=== PATIENT | female | born 1985 | race Hispanic/Latino ===

== ENCOUNTER 2019-08-29 11:36 | Outpatient (CLI) | payer OTHER, SELFPAY ==
[2019-08-29 13:04] LABS: APPEARANCE, URINE HAZY (CLEAR); BACTERIA, URINE AUTO NEGATIVE (NEGATIVE); BILIRUBIN, URINE AUTO NEGATIVE (NEGATIVE); BLOOD, URINE BLOOD NEGATIVE (NEGATIVE); COLOR, URINE YELLOW (YELLOW); GLUCOSE, URINE (UA) AUTO NEGATIVE (NEGATIVE); KETONE, URINE AUTO 1+ mg/dL (NEGATIVE); LEUKOCYTE ESTERASE, URINE AUTO 3+ (NEGATIVE); MUCUS, URINE SMALL (NEGATIVE); NITRITE, URINE AUTO NEGATIVE (NEGATIVE); PROTEIN, URINE AUTO NEGATIVE (NEGATIVE); RBC, URINE AUTO 2 /HPF (0-3); SQUAMOUS EPITHELIAL CELL UR AU 8 /HPF (0-6); UROBILINOGEN, URINE AUTO 0.2 mg/dL (0.0-2.0); WBC, URINE AUTO 19 /HPF (0-3)
[2019-08-29] MEDS ORDERED: ACETAMINOPHEN 500 MG TAB PO PRN (13:45)
[2019-08-29] MEDS ORDERED: AMOX500C PO (13:50)
[2019-08-29] MEDS ORDERED: PHEN-593 PO (13:51)
[2019-08-29] MEDS ORDERED: AMOXICILLIN 500 MG CAP PO SCH (14:00)
[2019-08-29] MEDS ORDERED: PHENAZOPYRIDINE 100 MG TAB PO SCH (14:00)
[2019-08-29 14:34] LABS: CHLAMYDIA DNA AMPLIFICATION NEGATIVE (NEGATIVE); GC DNA AMPLIFICATION NEGATIVE (NEGATIVE)
--- NOTE | 2019-08-29 14:54 | IPNPDOC ---
Text Note Date of Service The patient was seen on 08/29/19. NOTE Outpatient 34yo REID 11/25/2019. Visiting from [place], no records available. Reports lower abdominal pain umbilicus down to pubic bone. FH cat I, reassuring for gestation No UC on monitor Abdomen soft, tender over bladder. SVE parous, LTC, OOP UA 1+ ketones, SG 1.020, 3+ leuk esterase, 19[facility] [employer] probe negative FFN negative. Started amoxicillin 500mg TID and pyridium 200mg TID. Enc increased fluids, frequent voiding, tylenol prn. Rx sent to [facility]. Pt discharged home. Verbalized understanding. Beryl Schmidt CNM Aug 29, 2019 14:54
== END 2019-08-29 15:20 ==
LOC: M LDO 11:36
PROVIDERS: ATTEND Advanced Practice Midwife
DX: O26.899 Other specified pregnancy related conditions, unspecified trimester (principal); R10.9 Unspecified abdominal pain; Z3A.00 Weeks of gestation of pregnancy not specified
CPT/HCPCS: 81001; 82731; 87086; 87661; G0378; G0463